=== PATIENT | female | born 1965 | race Caucasian/White ===

== ENCOUNTER 2023-03-23 12:55 | Emergency (ER) | payer OTHER ==
[~2023-03-23] VITALS: Ht 160 cm; Wt 77.1 kg
[2023-03-23 15:03] LABS: HEMATOCRIT 38.3 % (36.0-45.00); HEMOGLOBIN 13.1 g/dL (12.0-15.00); MEAN CELL VOLUME 87.2 fL (80.00-100.00); MEAN CORPUSCULAR HEMOGLOBIN 29.7 pg (27.00-32.0); MEAN CORPUSCULAR HGB CONC 34.1 g/dl (32.0-36.0); PLATELET COUNT 420 K/uL (150-450); RED CELL DISTRIBUTION WIDTH 13.4 % (11.5-14.5)
== END 2023-03-23 20:20 | disposition home or self-care (01) ==
LOC: ER 12:55
PROVIDERS: General Practice
DX: M54.50 Low back pain, unspecified (principal); M79.661 Pain in right lower leg